=== PATIENT | male | born 1965 | race Caucasian/White ===

== ENCOUNTER 2017-10-20 19:37 | Observation (INO) | payer SELFPAY ==
[~2017-10-20] VITALS: Ht 152.4 cm; Wt 76.3 kg
[2017-10-20] MEDS ORDERED: LOSARTAN POT50 MG PO (19:59)
[2017-10-20 21:15] LABS: HEMATOCRIT 36.9 % (39.0-50.0); IMMATURE GRANULOCYTES 0.3 % (0.0-1.0); MEAN CELL VOLUME 93.9 fL CALC (80.0-100.0); MEAN CORPUSCULAR HGB 33.1 pG CALC (26.0-32.0); MEAN CORPUSCULAR HGB CONC 35.2 g/L CALC (32.0-36.0); NEUT# 12.45 thou/uL (1.82-7.42); RED BLOOD COUNT 3.93 mill/uL (4.70-6.10); RED CELL DISTRI WIDTH 13.2 % (11.5-15.5)
[2017-10-20 21:29] LABS: ALBUMIN 4.4 g/dL (3.2-5.0); ALKALINE PHOSPHATASE 85 u/l (38-126); ANION GAP 13 (6-22 (CALC)); BILIRUBIN, TOTAL 0.6 mg/dL (0.0-1.4); BUN 11 mg/dL (9-20); BUN/CREATININE RATIO 14 (12-20 (CALC)); CALCIUM 9.8 mg/dL (8.4-10.2); CARBON DIOXIDE 23 mmol/l (22-30); CHLORIDE 109 mmol/l (95-108); CREATININE 0.8 mg/dL (0.7-1.3); GFR > 60 ML/MIN (>=60 (CALC)); GFR FOR AFR.AMER. > 60 ML/MIN (>=60 (CALC)); GLUCOSE 107 mg/dL (75-110); POTASSIUM 3.7 mmol/l (3.5-5.1); SGOT/AST 26 u/l (17-59); SGPT/ALT 33 u/l (21-72); SODIUM 140 mmol/l (137-146); TOTAL PROTEIN 7.6 g/dL (6.3-8.2)
[2017-10-20 22:30] VITALS: BP 130/82
[2017-10-21 04:00] VITALS: BP 128/74
[2017-10-21 05:16] LABS: HEMATOCRIT 33.8 % (39.0-50.0); HEMOGLOBIN 11.8 g/dl (14.0-18.0); MEAN CELL VOLUME 94.4 fL CALC (80.0-100.0); MEAN CORPUSCULAR HGB CONC 34.9 g/L CALC (32.0-36.0); RED BLOOD COUNT 3.58 mill/uL (4.70-6.10); RED CELL DISTRI WIDTH 13.3 % (11.5-15.5)
[2017-10-21 05:18] LABS: ANION GAP 10 (6-22 (CALC)); BUN 10 mg/dL (9-20); BUN/CREATININE RATIO 13 (12-20 (CALC)); CARBON DIOXIDE 24 mmol/l (22-30); CHLORIDE 111 mmol/l (95-108); CREATININE 0.8 mg/dL (0.7-1.3); GFR > 60 ML/MIN (>=60 (CALC)); GFR FOR AFR.AMER. > 60 ML/MIN (>=60 (CALC)); GLUCOSE 95 mg/dL (75-110); SODIUM 141 mmol/l (137-146)
[2017-10-21 07:43] VITALS: BP 132/85
[2017-10-21 09:20] LABS: CHOLESTEROL HDL RATIO 3.2 (<4.4 (CALC)); MAGNESIUM 1.8 mg/dL (1.6-2.3)
[2017-10-21] MEDS ORDERED: [UNRECOGNIZED DRUG - OTHER] (09:59)
[2017-10-21] MEDS ORDERED: ALEVE220 M2 PO (10:03)
[2017-10-21 10:06] LABS: URINE BILIRUBIN - DIPSTICK NEGATIVE (NEGATIVE); URINE BLOOD DIPSTICK NEGATIVE (NEGATIVE); URINE CLARITY CLEAR; URINE COLOR YELLOW; URINE GLUCOSE - DIPSTICK NEGATIVE (NEGATIVE); URINE KETONE NEGATIVE (NEGATIVE); URINE LEUK ESTERASE NEGATIVE (NEGATIVE); URINE NITRITE - DIPSTICK NEGATIVE (Negative); URINE PH 8.5 (4.5-8.0); URINE PROTEIN - DIPSTICK NEGATIVE (NEG-TRACE); URINE UROBILINOGEN - DIPSTICK 0.2 E.U./dL (0.2)
[2017-10-21] MEDS ORDERED: Antacid (10:09)
[2017-10-21] MEDS ORDERED: PAIN RELIEF (10:10)
[2017-10-21] MEDS ORDERED: KEFLEX500 M1 PO (11:45)
[2017-10-21] MEDS ORDERED: BACTRIM DS1 TAB PO (11:45)
[2017-10-21] MEDS ORDERED: TRAMADOL HCL50 MG PO (11:45)
== END 2017-10-21 15:35 | disposition home or self-care (01) | DRG 603 ==
LOC: ED 19:37 → ED-I 21:31 → ED 21:42 → MS2 21:43
PROVIDERS: Emergency Medicine; Nurse Practitioner Family; ADMIT Internal Medicine; ATTEND Internal Medicine
DX: L03.116 Cellulitis of left lower limb (principal); I10 Essential (primary) hypertension; J44.9 Chronic obstructive pulmonary disease, unspecified; E78.5 Hyperlipidemia, unspecified; F17.210 Nicotine dependence, cigarettes, uncomplicated; M19.90 Unspecified osteoarthritis, unspecified site
CPT/HCPCS: G0378; J3370